=== PATIENT | female | born 1995 | race African-American/Black ===

== ENCOUNTER 2020-10-07 13:06 | Inpatient (IN) | payer OTHER ==
[2020-10-07] MEDS ORDERED: Ondansetron PF 4 MG/2 ML Vial IVP PRN (14:06)
[2020-10-07] MEDS ORDERED: Lidocaine 1% (PF) 30 ML VIAL SC PRN (14:06)
[2020-10-07] MEDS ORDERED: Promethazine HCl 25 MG/ML VIAL IM PRN (14:06)
[2020-10-07] MEDS ORDERED: hydrALAZINE 20 MG/ML VIAL SLOW IVP PRN ×2 (14:06)
[2020-10-07 15:03] VITALS: BMI 30.4
[2020-10-07 16:21] LABS: #Eosinphils 0.1 10x3/uL (0.0-0.5); #Monocytes 0.4 10x3/uL (0.0-1.1); #Neutrophils 5.5 10x3/uL (1.5-8.4); %Basophils 0.3 % (0.0-2.0); %Eosinophils 0.7 % (0.0-6.0); %Lymphocytes 13.1 % (18.0-47.0); %Monocytes 6.1 % (0.0-10.0); %Neutrophils 79.1 % (40.0-75.0); Mean Corpuscular HGB CONC 32.7 g/dL (32.0-36.0); Mean Corpuscular Hemoglobin 28.1 pg (27.0-33.0); Mean Corpuscular Volume 85.9 fl (81.6-98.3); Mean Platelet Volume 10.8 fl (7.4-10.4); Platelet Count 181 10x3/uL (150-450); RBC Distribution Width 14.6 % (11.5-14.5); Red Blood Cell (RBC) Count 3.91 10x6/uL (3.90-5.03)
[2020-10-07 16:58] LABS: Hep B Surf Ag Non-Reactive S/CO (NonReactive); Syphilis Antibody Nonreactive (Nonreactive); Syphilis Antibody Index 0.04 S/CO (<1.00 Non-Reactive)
[2020-10-07 17:21] LABS: HBSAg Index 0.13 S/CO (0-0.99)
[2020-10-07] MEDS ORDERED: Fentanyl 4 mcg/Bup 0.1% Cadd 100 ML ONE (18:35)
[2020-10-07] MEDS ORDERED: Lactated Ringer's 1,000 ML IV SCH (22:15)
[2020-10-08 01:53] LABS: SARS-CoV-2 PCR by NAA Not Detected (NotDetected)
[2020-10-08] MEDS: NS w/ Oxytocin 30 units 500 ML IV PRN ×2 (01:58→03:57)
[2020-10-08] MEDS ORDERED: Misoprostol 200 MCG TAB ONE (02:24)
[2020-10-08] MEDS ORDERED: Misoprostol 200 MCG TAB PR SCH (02:30)
[2020-10-08] MEDS ORDERED: Lanolin Ointment 7 GM TUBE TOP PRN (06:18)
[2020-10-08] MEDS ORDERED: diphenhydrAMINE 25 MG CAP PO PRN (06:18)
[2020-10-08] MEDS ORDERED: hydrALAZINE 20 MG/ML VIAL SLOW IVP PRN (06:18)
[2020-10-08] MEDS ORDERED: Promethazine HCl 25 MG/ML VIAL IM PRN (06:18)
[2020-10-08] MEDS ORDERED: Milk Of Magnesia 30 ML UDCUP PO PRN (06:18)
[2020-10-08] MEDS ORDERED: Adacel (T-DAP) 0.5 ML SYRINGE IM ONE (06:18)
[2020-10-08] MEDS ORDERED: Bisacodyl 10 MG SUPP PR PRN (06:18)
[2020-10-08] MEDS ORDERED: Ondansetron PF 4 MG/2 ML Vial IVP PRN (06:18)
[2020-10-08] MEDS ORDERED: Benzocaine-Menthol 82.5 ML CAN TOP PRN (06:18)
[2020-10-08] MEDS ORDERED: Erythromycin Base 0.5% Oint 1 GM TUBE EA EYE SCH (06:30)
[2020-10-08] MEDS ORDERED: Boudreaux's Butt Paste 60 GM TUBE TOP PRN (06:30)
[2020-10-08] MEDS ORDERED: NS w/ Oxytocin 30 units 500 ML IV SCH (06:30)
[2020-10-08] MEDS ORDERED: Hepatitis B Vaccine 10 MCG/0.5 ML SYR IM ONE (06:30)
[2020-10-08] MEDS ORDERED: Phytonadione Neonatal 1 MG/0.5 ML AMP IM SCH (06:30)
[2020-10-08] MEDS ORDERED: Boostrix 0.5 ML (Tdap) VIAL IM ONE (06:30)
[2020-10-08] MEDS: Ibuprofen 800 MG TAB PO SCH ×3 (06:40→21:56)
[2020-10-08] MEDS: Ferrous Sulfate 325 MG TAB PO SCH ×2 (08:17→17:05)
[2020-10-08] MEDS: Docusate Calcium (SURFAK) 240 MG CAP PO SCH ×2 (09:36→21:56)
[2020-10-08] MEDS: Prenatal Vitamin 1 TAB PO SCH (09:36)
[2020-10-08] MEDS ORDERED: Bupivacaine 0.25% HCL 30 ML VIAL ONE (11:15)
[2020-10-09] MEDS: Ibuprofen 800 MG TAB PO SCH ×3 (05:50→21:11)
[2020-10-09] MEDS: Ferrous Sulfate 325 MG TAB PO SCH ×2 (07:25→13:42)
[2020-10-09] MEDS: Docusate Calcium (SURFAK) 240 MG CAP PO SCH ×2 (08:52→21:11)
[2020-10-09] MEDS: Prenatal Vitamin 1 TAB PO SCH (08:52)
[2020-10-10] MEDS: Ibuprofen 800 MG TAB PO SCH (05:51)
[2020-10-10 08:40] VITALS: BP 111/68; TEMP 98.2
[2020-10-10] MEDS: Ferrous Sulfate 325 MG TAB PO SCH (08:59)
[2020-10-10] MEDS: Docusate Calcium (SURFAK) 240 MG CAP PO SCH (08:59)
[2020-10-10] MEDS: Prenatal Vitamin 1 TAB PO SCH (08:59)
== END 2020-10-10 12:55 | disposition home or self-care (01) | DRG 807 ==
LOC: CSHLD/OP 13:06 → CSHLD 15:30 → CSHPP 10-08 05:05
PROVIDERS: ADMIT Family Medicine; ATTEND Family Medicine
PROC: 4A1HXCZ Monitoring of Products of Conception, Cardiac Rate, External Approach (ICD-10-PCS; principal; 2020-10-08)
PROC: 10E0XZZ Delivery of Products of Conception, External Approach (ICD-10-PCS; 2020-10-08)
PROC: 0HQ9XZZ Repair Perineum Skin, External Approach (ICD-10-PCS; 2020-10-08)
DX: O99.02 Anemia complicating childbirth (principal); Z37.0 Single live birth; Z3A.37 37 weeks gestation of pregnancy; O99.62 Diseases of the digestive system complicating childbirth; K21.9 Gastro-esophageal reflux disease without esophagitis; O70.0 First degree perineal laceration during delivery; O76 Abnormality in fetal heart rate and rhythm complicating labor and delivery; D50.9 Iron deficiency anemia, unspecified
CPT/HCPCS: 51702; 86780; 86850; 86900; 86901; 87081; 87340; 87635; 88307; 99285; J2590; S0020; U0003; U0005

== ENCOUNTER 2025-01-18 16:15 | Day surgery (SDC) | payer OTHER ==
[2025-01-18 16:31] VITALS: BMI 29.6
[2025-01-18] MEDS ORDERED: hydrALAZINE 20 MG/ML VIAL SLOW IVP PRN (17:55)
[2025-01-18 19:03] LABS: Glucose, Urine (Dipstick) Normal (Negative); Leukocyte Negative (Negative); Protein, Urine (Dipstick) 15 mg/dl (Neg-Trace); Specific Gravity, Urine 1.010 (1.005-1.030)
[2025-01-18 20:23] LABS: Bacteria/HPF Rare-Few HPF (None Seen); CAUTI Indications for Culture Pregnancy; RBC/HPF None Seen HPF (0-3); Urine Culture Reflex Yes Yes; WBC/HPF None Seen HPF (0-3)
[2025-01-19 06:29] LABS: Chlamydia by PCR, Vaginal Swab Not Detected (NotDetected); GC by PCR, Vaginal Swab Not Detected (NotDetected)
[2025-01-20 05:05] LABS: Group B Streptococcus by PCR Not Detected (NotDetected)
== END 2025-01-18 20:30 | disposition home or self-care (01) ==
LOC: CSHLD/OP 16:15
PROVIDERS: ATTEND Family Medicine
DX: O47.03 False labor before 37 completed weeks of gestation, third trimester (principal); O09.523 Supervision of elderly multigravida, third trimester; Z3A.32 32 weeks gestation of pregnancy; Z67.10 Type A blood, Rh positive; Z79.899 Other long term (current) drug therapy
CPT/HCPCS: 76817; 81001; 87086; 87480; 87491; 87510; 87591; 87653; 87660; 99284; J0595; J3105

== ENCOUNTER 2025-02-11 15:25 | Inpatient (IN) | payer BC, OTHER ==
[2025-02-11 15:33] VITALS: BMI 31.4
[2025-02-11] MEDS ORDERED: hydrALAZINE 20 MG/ML VIAL SLOW IVP PRN (15:36)
[2025-02-11] MEDS: Penicillin G Potassium 5 MILL.UNITS in Sodium Chloride 0.9% 100 ML IVPB SCH (20:42)
[2025-02-12] MEDS: Penicillin G 2.5 MILL.units 2.5 MILL.UNITS in Premix 1 BAG IVPB SCH (01:18)
[2025-02-12] MEDS ORDERED: Carboprost 250 MCG/ML AMP IM PRN (05:52)
[2025-02-12] MEDS ORDERED: Lidocaine 1% (PF) 30 ML VIAL SC PRN (05:52)
[2025-02-12] MEDS ORDERED: Tranexamic Acid 1,000 MG/10 ML VIAL IVP PRN (05:52)
[2025-02-12] MEDS ORDERED: Ibuprofen 800 MG TAB PO PRN (05:52)
[2025-02-12] MEDS ORDERED: Methylergonovine 0.2 MG/ML VIAL IM PRN (05:52)
[2025-02-12] MEDS ORDERED: Ondansetron PF 4 MG/2 ML Vial IVP PRN (05:52)
[2025-02-12] MEDS ORDERED: Diphenoxylate HCl/Atropine Tablet PO PRN ×2 (05:52)
[2025-02-12] MEDS ORDERED: Oxytocin 30 units/NS 500 ML 500 ML IV SCH (06:00)
[2025-02-12 07:48] LABS: Hematocrit 29.9 % (34.9-44.5); Hemoglobin 9.3 g/dL (12.0-15.5); Mean Corpuscular Hemoglobin 26.3 pg (27.0-33.0); Mean Corpuscular Volume 84.5 fL (81.6-98.3); Platelet Count 199 10x3/uL (150-450); Red Blood Cell (RBC) Count 3.54 10x6/uL (3.90-5.03); White Blood Cell (WBC) Count 8.52 10x3/uL (3.5-10.5)
[2025-02-12 08:18] LABS: Hep B Surf Ag - L&D Non-Reactive S/CO (NonReactive)
[2025-02-12 08:20] LABS: Syphilis Antibody Index 0.07 S/CO (<1.00 Non-Reactive)
[2025-02-12] MEDS: Acetaminophen 500 MG TAB PO PRN (10:14)
[2025-02-12 11:34] LABS: Fetal Membranes Rupture No Membranes Rupture (No Rupture)
[2025-02-12 14:08] LABS: GC by PCR, Vaginal Swab Not Detected (NotDetected)
[2025-02-12 16:17] LABS: Glucose, Urine (Dipstick) Normal (Negative); Leukocyte Negative (Negative); Protein, Urine (Dipstick) Negative (Neg-Trace); Specific Gravity, Urine 1.010 (1.005-1.030)
[2025-02-12 16:25] LABS: CAUTI Indications for Culture Pregnancy; RBC/HPF None Seen HPF (0-3)
[2025-02-12 16:26] LABS: WBC/HPF 0-3 HPF (0-3)
[2025-02-12 16:27] LABS: Bacteria/HPF Rare-Few HPF (None Seen)
[2025-02-12 16:28] LABS: Urine Culture Reflex Yes Yes
[2025-02-13 14:33] VITALS: BP 104/58; TEMP 98.5
== END 2025-02-13 15:50 | disposition home or self-care (01) | DRG 833 ==
LOC: CSHLD/OP 15:25 → CSHLD 19:46 → UNDOADMIN 19:46 → CSHLD 02-12 05:52 → CSHANTE 02-12 17:40
PROVIDERS: ADMIT Family Medicine; ATTEND Family Medicine
PROC: 4A1HXCZ Monitoring of Products of Conception, Cardiac Rate, External Approach (ICD-10-PCS; principal; 2025-02-12)
DX: O47.03 False labor before 37 completed weeks of gestation, third trimester (principal); Z79.899 Other long term (current) drug therapy; Z3A.35 35 weeks gestation of pregnancy
CPT/HCPCS: 76819; 81001; 84112; 85027; 86780; 86850; 86900; 86901; 87086; 87340; 87480; 87510; 87591; 87660; 99285; J1756; J2540

== ENCOUNTER 2025-03-05 17:27 | Inpatient (IN) | payer BC, OTHER ==
[~2025-03-05 17:27] MED LIST: Bupivacaine/Epinephrine 0.25% 30 ML VIAL ONE
[2025-03-05 17:54] VITALS: BMI 30.9
[2025-03-05] MEDS ORDERED: Methylergonovine 0.2 MG/ML VIAL IM PRN (18:04)
[2025-03-05] MEDS ORDERED: Diphenoxylate HCl/Atropine Tablet PO PRN ×2 (18:04)
[2025-03-05] MEDS ORDERED: Ondansetron PF 4 MG/2 ML Vial IVP PRN (18:04)
[2025-03-05] MEDS ORDERED: Tranexamic Acid 1,000 MG/10 ML VIAL IVP PRN (18:04)
[2025-03-05] MEDS ORDERED: Carboprost 250 MCG/ML AMP IM PRN (18:04)
[2025-03-05] MEDS ORDERED: hydrALAZINE 20 MG/ML VIAL SLOW IVP PRN (18:04)
[2025-03-05] MEDS ORDERED: Acetaminophen 500 MG TAB PO PRN (18:04)
[2025-03-05] MEDS ORDERED: Lidocaine 1% (PF) 30 ML VIAL SC PRN (18:06)
[2025-03-05] MEDS ORDERED: Oxytocin 30 units/NS 500 ML 500 ML IV SCH ×3 (18:15)
[2025-03-05 20:18] LABS: Hematocrit 30.7 % (34.9-44.5); Hemoglobin 9.9 g/dL (12.0-15.5); Mean Corpuscular Hemoglobin 27.3 pg (27.0-33.0); Mean Corpuscular Volume 84.8 fL (81.6-98.3); Platelet Count 183 10x3/uL (150-450); Red Blood Cell (RBC) Count 3.62 10x6/uL (3.90-5.03); White Blood Cell (WBC) Count 6.99 10x3/uL (3.5-10.5)
[2025-03-05] MEDS: fentaNYL/Ropivacaine Epidural 100 ML ONE (21:36)
[2025-03-05 21:40] LABS: Hep B Surf Ag - L&D Non-Reactive S/CO (NonReactive)
[2025-03-05 21:42] LABS: Syphilis Antibody Index 0.06 S/CO (<1.00 Non-Reactive)
[2025-03-06] MEDS: Ibuprofen 800 MG TAB PO PRN (00:08)
[2025-03-06] MEDS ORDERED: Milk Of Magnesia 30 ML UDCUP PO PRN (05:21)
[2025-03-06] MEDS ORDERED: Ondansetron PF 4 MG/2 ML Vial IVP PRN (05:21)
[2025-03-06] MEDS ORDERED: diphenhydrAMINE 25 MG CAP PO PRN (05:21)
[2025-03-06] MEDS ORDERED: Bisacodyl 10 MG SUPP PR PRN (05:21)
[2025-03-06] MEDS ORDERED: Lanolin Ointment 7 GM TUBE TOP PRN (05:21)
[2025-03-06] MEDS ORDERED: Methylergonovine 0.2 MG/ML VIAL IM PRN (05:21)
[2025-03-06] MEDS ORDERED: Preparation H Ointment 28 GM TUBE PR PRN (05:21)
[2025-03-06] MEDS ORDERED: hydrALAZINE 20 MG/ML VIAL SLOW IVP PRN (05:21)
[2025-03-06] MEDS ORDERED: Benzocaine-Menthol 82.5 ML CAN TOP PRN (05:21)
[2025-03-06] MEDS ORDERED: Oxytocin 30 units/NS 500 ML 500 ML IV SCH (05:30)
[2025-03-06] MEDS: Acetaminophen 500 MG TAB PO SCH (06:08)
[2025-03-06] MEDS: Boostrix 0.5 ML (Tdap) VIAL (>/=7 yrs of age) IM ONE (07:17)
[2025-03-06] MEDS: Ferrous Sulfate 325 MG TAB PO SCH (08:08)
[2025-03-06] MEDS: Ibuprofen 800 MG TAB PO SCH (08:09)
[2025-03-07 22:42] VITALS: BP 103/56; TEMP 98.2
== END 2025-03-07 15:10 | disposition home or self-care (01) | DRG 807 ==
LOC: CSHLD 17:27 → CSHPP 03-06 01:35
PROVIDERS: ADMIT Family Medicine; ATTEND Family Medicine
PROC: 10E0XZZ Delivery of Products of Conception, External Approach (ICD-10-PCS; principal; 2025-03-05)
PROC: 4A1HXCZ Monitoring of Products of Conception, Cardiac Rate, External Approach (ICD-10-PCS; 2025-03-05)
PROC: 10907ZC Drainage of Amniotic Fluid, Therapeutic from Products of Conception, Via Natural or Artificial Opening (ICD-10-PCS; 2025-03-05)
DX: O99.02 Anemia complicating childbirth (principal); Z37.0 Single live birth; D50.9 Iron deficiency anemia, unspecified; Z3A.38 38 weeks gestation of pregnancy
CPT/HCPCS: 36415; 51702; 85027; 86780; 86850; 86900; 86901; 87340